=== PATIENT | male | born 1955 | race Caucasian/White ===

== ENCOUNTER 2018-02-05 05:16 | Emergency (ER) | payer OTHER ==
[~2018-02-05] VITALS: Ht 175.3 cm; Wt 91.0 kg
[2018-02-05] MEDS ORDERED: KETOROLAC 60MG/2ML VIAL IM ONE (06:30)
[2018-02-05] MEDS ORDERED: PREDNISONE 20MG TABLET PO ONE (07:30)
[2018-02-05 09:04] VITALS: BP 125/68
== END 2018-02-05 09:08 | disposition home or self-care (01) ==
LOC: ER 05:16
DX: M70.72 Other bursitis of hip, left hip (principal); Y93.89 Activity, other specified; K21.9 Gastro-esophageal reflux disease without esophagitis; Z88.6 Allergy status to analgesic agent
CPT/HCPCS: 73502; 96372; 99284; J1885; J7512; Z7610